=== PATIENT | male | born 1960 | race Two or more races ===

== ENCOUNTER 2022-08-16 16:22 | Inpatient (IN) | payer MEDICAID, OTHER ==
[~2022-08-16] VITALS: Ht 175.3 cm; Wt 105.8 kg
[2022-08-16] MEDS: LIDOCAINE 4MG/ML IV SOLN 500 ML IV SCH (16:51)
[2022-08-16 17:06] LABS: Basophils # (auto) 0.1 10 ^3/uL (0-0.2); Basophils % (auto) 0.7 % (0.0-2.0); Eosinophils # (auto) 0 10 ^3/uL (0-0.8); Eosinophils % (auto) 0.4 % (0.0-7.0); Hematocrit 47.4 % (41.0-53.0); Hemoglobin 16.1 g/dL (13.5-17.5); Lymphocytes # (auto) 2.1 10 ^3/uL (0.4-5.4); Lymphocytes % (auto) 20.9 % (10.0-50.0); Mean Corpuscular Hemoglobin 32.8 pg (28.0-32.0); Mean Corpuscular Volume 96.4 fL (80.0-100.0); Monocytes # (auto) 0.4 10 ^3/uL (0-1.3); Monocytes % (auto) 3.7 % (0.0-12.0); Neutrophils # (auto) 7.6 10 ^3/uL (1.6-8.6); Neutrophils % (auto) 74.3 % (37.0-80.0); Nucleated Red Blood Cells % 0.1 %; Red Blood Cells 4.91 10^6/uL (4.5-5.90); White Blood Cell 10.3 10^3/uL (4.4-10.8)
[2022-08-16] MEDS ORDERED: MIDAZOLAM HCL 10 ML IV ONE (17:24)
[2022-08-16 17:27] LABS: Albumin 3.6 g/dL (3.4-5.0); BUN/Creatinine Ratio 15.6; Calcium 9.2 mg/dL (8.5-10.1); Potassium 3.5 mmol/L (3.5-5.1)
[2022-08-16 17:30] LABS: Bilirubin, Total 0.5 mg/dL (0.2-1.0); Total Protein 7.4 g/dL (6.4-8.2)
[2022-08-16] MEDS ORDERED: ASPirin 325 MG TAB PO ONE (18:15)
[2022-08-16] MEDS: MAGNESIUM SULFATE 1GM/100ML 100 ML IV SCH ×2 (18:21→19:20)
[2022-08-16] MEDS ORDERED: HEPARIN SODIUM (PORCINE) 5000 UNITS/ML 1ML VIAL IV ONE (21:30)
[2022-08-16] MEDS ORDERED: NITROGLYCERIN 0.4 MG SL TAB SL PRN (21:30)
[2022-08-16] MEDS: SODIUM CHLORIDE 0.9% 1,000 ML IV SCH (21:42)
[2022-08-16] MEDS ORDERED: hydrALAZINE HCL 20 MG/ML VL IV PRN (21:45)
[2022-08-16] MEDS ORDERED: DEXTROSE (50%) 50ML SYRG IV PRN (21:45)
[2022-08-16] MEDS ORDERED: CLOPIDOGREL BISULFATE 75 MG TAB PO ONE (21:45)
[2022-08-16] MEDS: HEPARIN DRIP/D5W 100UNITS/ML 250 ML IV SCH ×2 (22:00→22:10)
[2022-08-16] MEDS ORDERED: ATORVASTATIN 20 MG TAB PO SCH (22:00)
[2022-08-16 22:11] LABS: Basophils # (auto) 0 10 ^3/uL (0-0.2); Basophils % (auto) 0.5 % (0.0-2.0); Eosinophils # (auto) 0 10 ^3/uL (0-0.8); Eosinophils % (auto) 0.2 % (0.0-7.0); Hematocrit 45.3 % (41.0-53.0); Hemoglobin 15.4 g/dL (13.5-17.5); Lymphocytes # (auto) 2.8 10 ^3/uL (0.4-5.4); Lymphocytes % (auto) 27.5 % (10.0-50.0); Mean Corpuscular Hemoglobin 32.2 pg (28.0-32.0); Mean Corpuscular Hgb Conc. 34.1 g/dL (32.0-36.0); Mean Corpuscular Volume 94.5 fL (80.0-100.0); Monocytes # (auto) 0.5 10 ^3/uL (0-1.3); Monocytes % (auto) 4.6 % (0.0-12.0); Neutrophils # (auto) 6.9 10 ^3/uL (1.6-8.6); Neutrophils % (auto) 67.2 % (37.0-80.0); Nucleated Red Blood Cells % 0.2 %; Red Blood Cells 4.79 10^6/uL (4.5-5.90); White Blood Cell 10.3 10^3/uL (4.4-10.8)
[2022-08-16 22:32] LABS: INR 0.96 (0.9-1.15); Partial Thromboplastin Time 23.5 sec (24.6-33.4)
[2022-08-17] VITALS (60 sets, daily range): BP systolic 85–149; BP diastolic 50–96
[2022-08-17] MEDS: ACCU-CHEK COMFORT CURVE STRIP VI SCH ×4 (00:15→18:25)
[2022-08-17] MEDS: InsuLIN REG 1unit/0.01ml Soln (100units/ml) SC SCH ×4 (00:15→18:31)
[2022-08-17] MEDS: LIDOCAINE 4MG/ML IV SOLN 500 ML IV SCH ×3 (01:00→23:06)
[2022-08-17] MEDS: SODIUM CHLORIDE 0.9% 1,000 ML IV SCH ×2 (05:30→13:30)
[2022-08-17 06:39] LABS: Urine Bacteria NONE SEEN /hpf (None Seen); Urine Blood Negative /uL (Negative); Urine Specific Gravity 1.028 (1.001-1.035); Urine WBC <1 /hpf (0 - 3)
[2022-08-17 07:00] LABS: Alcohol, Urine < 3.0 mg/dL (0-10); Amphetamine Screen, Urine NEGATIVE (NEGATIVE); Barbiturate Scree,Urine NEGATIVE (NEGATIVE); Benzodiazephine Screen, Urine NEGATIVE (NEGATIVE); Cannabinoid Screen, Urine NEGATIVE (NEGATIVE); Cocaine Screen, Urine NEGATIVE (NEGATIVE); Opiate Scree,Urine NEGATIVE (NEGATIVE); Phencyclidine Screen, Urine NEGATIVE (NEGATIVE)
[2022-08-17] MEDS: HEPARIN DRIP/D5W 100UNITS/ML 250 ML IV SCH (08:58)
[2022-08-17 09:30] LABS: Basophils # (auto) 0 10 ^3/uL (0-0.2); Basophils % (auto) 0.5 % (0.0-2.0); Eosinophils # (auto) 0 10 ^3/uL (0-0.8); Eosinophils % (auto) 0.6 % (0.0-7.0); Hematocrit 44.1 % (41.0-53.0); Hemoglobin 15.1 g/dL (13.5-17.5); Lymphocytes # (auto) 2.9 10 ^3/uL (0.4-5.4); Lymphocytes % (auto) 34.1 % (10.0-50.0); Mean Corpuscular Hemoglobin 32.6 pg (28.0-32.0); Mean Corpuscular Hgb Conc. 34.3 g/dL (32.0-36.0); Mean Corpuscular Volume 94.9 fL (80.0-100.0); Monocytes # (auto) 0.4 10 ^3/uL (0-1.3); Monocytes % (auto) 5.1 % (0.0-12.0); Neutrophils % (auto) 59.7 % (37.0-80.0); Nucleated Red Blood Cells % 0.3 %; Red Blood Cells 4.65 10^6/uL (4.5-5.90); Red Cell Distribution Width 13.2 % (11.8-14.3); White Blood Cell 8.4 10^3/uL (4.4-10.8)
[2022-08-17 09:46] LABS: INR 1.02 (0.9-1.15); Partial Thromboplastin Time 31.9 sec (24.6-33.4)
[2022-08-17] MEDS: PANTOPRAZOLE 40 MG/10 ML VIAL INJ IV SCH (09:50)
[2022-08-17] MEDS ORDERED: HEPARIN DRIP/D5W 100UNITS/ML 250 ML IV SCH (10:30)
[2022-08-17] MEDS ORDERED: HEPARIN SODIUM (PORCINE) 5000 UNITS/ML 1ML VIAL IV ONE (10:30)
[2022-08-17 12:28] LABS: BUN/Creatinine Ratio 20.6; Calcium 8.7 mg/dL (8.5-10.1)
[2022-08-17] MEDS ORDERED: VERAPAMIL 2.5MG/ML INJ 2ML VIAL IV ONE (15:05)
[2022-08-17] MEDS ORDERED: MIDAZOLAM HCL 2MG/2ML 2ml VIAL (1mg/ml) ONE (15:05)
[2022-08-17] MEDS ORDERED: fentaNYL CITRATE 100 MCG/2 ML VL ONE (15:05)
[2022-08-17] MEDS ORDERED: IODIXANOL 320MG/ML 100ML BTL IV ONE ×3 (15:10→17:13)
[2022-08-17] MEDS ORDERED: LIDOCAINE 2%HCL (LOCAL ANESTH.) INJ 10ml MDV ONE (15:11)
[2022-08-17] MEDS ORDERED: ATROPINE SULF 1 MG/10ml SYR ONE (16:17)
[2022-08-17] MEDS ORDERED: HEPARIN DRIP/D5W 100UNITS/ML 250 ML IV ONE (16:20)
[2022-08-17] MEDS ORDERED: HEPARIN SODIUM (PORCINE) 5000 UNITS/ML 1ML VIAL ONE (16:20)
[2022-08-17] MEDS ORDERED: FUROSEMIDE 20 MG/2 ML VIAL ONE (17:26)
[2022-08-17] MEDS ORDERED: CLOPIDOGREL 300 MG TAB PO ONE (18:00)
[2022-08-17] MEDS: ASPirin 81 mg TAB PO SCH (18:24)
[2022-08-17 20:42] LABS: Cholesterol 239 mg/dL (< 200); Triglycerides 305 mg/dL (< 150)
[2022-08-17 20:43] LABS: HDL Cholesterol 37 mg/dL (40-59); LDL Cholesterol 162 mg/dL (< 100)
[2022-08-17] MEDS: ATORVASTATIN 20 MG TAB PO SCH (22:02)
[2022-08-17] MEDS: MORPHINE SULFATE INJ 2 MG/ml SYRG IV PRN (22:06)
[2022-08-18] VITALS (77 sets, daily range): BP systolic 109–196; BP diastolic 57–142
[2022-08-18] MEDS: InsuLIN REG 1unit/0.01ml Soln (100units/ml) SC SCH ×4 (00:17→17:18)
[2022-08-18] MEDS: ACCU-CHEK COMFORT CURVE STRIP VI SCH ×4 (00:23→17:17)
[2022-08-18] MEDS: MORPHINE SULFATE INJ 2 MG/ml SYRG IV PRN (04:27)
[2022-08-18] MEDS: CLOPIDOGREL BISULFATE 75 MG TAB PO SCH (08:36)
[2022-08-18] MEDS: ASPirin 81 mg TAB PO SCH (08:36)
[2022-08-18] MEDS: PANTOPRAZOLE 40 MG/10 ML VIAL INJ IV SCH (08:36)
[2022-08-18] MEDS: METOPROLOL SUCCINATE XL 50 MG TAB PO SCH (08:36)
[2022-08-18 08:56] LABS: Basophils # (auto) 0 10 ^3/uL (0-0.2); Basophils % (auto) 0.4 % (0.0-2.0); Eosinophils # (auto) 0 10 ^3/uL (0-0.8); Eosinophils % (auto) 0.1 % (0.0-7.0); Hematocrit 44.9 % (41.0-53.0); Lymphocytes % (auto) 23.2 % (10.0-50.0); Mean Corpuscular Hemoglobin 31.8 pg (28.0-32.0); Mean Corpuscular Hgb Conc. 33.3 g/dL (32.0-36.0); Mean Corpuscular Volume 95.3 fL (80.0-100.0); Monocytes # (auto) 0.4 10 ^3/uL (0-1.3); Monocytes % (auto) 4.6 % (0.0-12.0); Neutrophils # (auto) 6.2 10 ^3/uL (1.6-8.6); Neutrophils % (auto) 71.7 % (37.0-80.0); Red Blood Cells 4.72 10^6/uL (4.5-5.90); White Blood Cell 8.6 10^3/uL (4.4-10.8)
[2022-08-18] MEDS ORDERED: METOPROLOL TARTRATE 50 MG TAB PO ONE (10:00)
[2022-08-18 10:48] LABS: Potassium 3.9 mmol/L (3.5-5.1)
[2022-08-18 10:53] LABS: BUN/Creatinine Ratio 19.4; Calcium 8.3 mg/dL (8.5-10.1)
[2022-08-18] MEDS: LIDOCAINE 4MG/ML IV SOLN 500 ML IV SCH (12:36)
[2022-08-18] MEDS: ATORVASTATIN 20 MG TAB PO SCH (22:00)
[2022-08-19] VITALS (83 sets, daily range): BP systolic 93–196; BP diastolic 41–124
[2022-08-19 05:00] LABS: Basophils # (auto) 0 10 ^3/uL (0-0.2); Basophils % (auto) 0.4 % (0.0-2.0); Eosinophils # (auto) 0 10 ^3/uL (0-0.8); Eosinophils % (auto) 0.5 % (0.0-7.0); Hematocrit 44.9 % (41.0-53.0); Lymphocytes # (auto) 2.5 10 ^3/uL (0.4-5.4); Lymphocytes % (auto) 32.2 % (10.0-50.0); Mean Corpuscular Hemoglobin 31.9 pg (28.0-32.0); Mean Corpuscular Hgb Conc. 33.5 g/dL (32.0-36.0); Mean Corpuscular Volume 95.4 fL (80.0-100.0); Monocytes # (auto) 0.5 10 ^3/uL (0-1.3); Monocytes % (auto) 6.5 % (0.0-12.0); Neutrophils # (auto) 4.7 10 ^3/uL (1.6-8.6); Neutrophils % (auto) 60.4 % (37.0-80.0); Nucleated Red Blood Cells % 0.1 %; Red Blood Cells 4.71 10^6/uL (4.5-5.90); Red Cell Distribution Width 13.1 % (11.8-14.3); White Blood Cell 7.9 10^3/uL (4.4-10.8)
[2022-08-19 05:12] LABS: BUN/Creatinine Ratio 18.9; Calcium 8.2 mg/dL (8.5-10.1); Potassium 4.2 mmol/L (3.5-5.1)
[2022-08-19] MEDS: ACCU-CHEK COMFORT CURVE STRIP VI SCH ×5 (06:00→23:43)
[2022-08-19] MEDS: InsuLIN REG 1unit/0.01ml Soln (100units/ml) SC SCH ×5 (06:00→23:45)
[2022-08-19] MEDS: ASPirin 81 mg TAB PO SCH (07:13)
[2022-08-19] MEDS: CLOPIDOGREL BISULFATE 75 MG TAB PO SCH (07:14)
[2022-08-19] MEDS: METOPROLOL SUCCINATE XL 50 MG TAB PO SCH (09:11)
[2022-08-19] MEDS: PANTOPRAZOLE 40 MG/10 ML VIAL INJ IV SCH (09:11)
[2022-08-19] MEDS: LIDOCAINE 4MG/ML IV SOLN 500 ML IV SCH (09:35)
[2022-08-19] MEDS: ATORVASTATIN 20 MG TAB PO SCH (21:00)
[2022-08-20] VITALS (81 sets, daily range): BP systolic 91–206; BP diastolic 47–109
[2022-08-20] MEDS: LIDOCAINE 4MG/ML IV SOLN 500 ML IV SCH (00:54)
[2022-08-20] MEDS: ACCU-CHEK COMFORT CURVE STRIP VI SCH ×3 (06:02→17:11)
[2022-08-20] MEDS: InsuLIN REG 1unit/0.01ml Soln (100units/ml) SC SCH ×3 (06:11→17:11)
[2022-08-20] MEDS: ASPirin 81 mg TAB PO SCH ×2 (07:22→17:57)
[2022-08-20] MEDS: CLOPIDOGREL BISULFATE 75 MG TAB PO SCH ×2 (07:22→17:57)
[2022-08-20] MEDS: METOPROLOL SUCCINATE XL 50 MG TAB PO SCH (08:24)
[2022-08-20] MEDS: PANTOPRAZOLE 40 MG/10 ML VIAL INJ IV SCH (08:24)
[2022-08-20] MEDS: ATORVASTATIN 20 MG TAB PO SCH (21:07)
[2022-08-21] VITALS (22 sets, daily range): BP systolic 89–152; BP diastolic 47–86
[2022-08-21] MEDS: ACCU-CHEK COMFORT CURVE STRIP VI SCH ×5 (00:03→23:58)
[2022-08-21] MEDS: InsuLIN REG 1unit/0.01ml Soln (100units/ml) SC SCH ×4 (05:49→17:58)
[2022-08-21 06:59] LABS: Basophils # (auto) 0 10 ^3/uL (0-0.2); Basophils % (auto) 0.4 % (0.0-2.0); Eosinophils # (auto) 0.1 10 ^3/uL (0-0.8); Eosinophils % (auto) 1.4 % (0.0-7.0); Hemoglobin 14.6 g/dL (13.5-17.5); Lymphocytes # (auto) 2.3 10 ^3/uL (0.4-5.4); Lymphocytes % (auto) 32.6 % (10.0-50.0); Mean Corpuscular Hemoglobin 31.7 pg (28.0-32.0); Mean Corpuscular Hgb Conc. 33.2 g/dL (32.0-36.0); Mean Corpuscular Volume 95.6 fL (80.0-100.0); Monocytes # (auto) 0.4 10 ^3/uL (0-1.3); Monocytes % (auto) 5.7 % (0.0-12.0); Neutrophils # (auto) 4.3 10 ^3/uL (1.6-8.6); Neutrophils % (auto) 59.9 % (37.0-80.0); Nucleated Red Blood Cells % 0.1 %; Red Cell Distribution Width 13.1 % (11.8-14.3); White Blood Cell 7.1 10^3/uL (4.4-10.8)
[2022-08-21 07:12] LABS: INR 1.01 (0.9-1.15); Partial Thromboplastin Time 26.2 sec (24.6-33.4)
[2022-08-21 07:21] LABS: Albumin 3.3 g/dL (3.4-5.0); BUN/Creatinine Ratio 21.1; Calcium 8.8 mg/dL (8.5-10.1)
[2022-08-21 07:24] LABS: Bilirubin, Total 0.7 mg/dL (0.2-1.0); Total Protein 6.9 g/dL (6.4-8.2)
[2022-08-21] MEDS: PANTOPRAZOLE 40 MG/10 ML VIAL INJ IV SCH (09:48)
[2022-08-21] MEDS: METOPROLOL SUCCINATE XL 50 MG TAB PO SCH (10:00)
[2022-08-21] MEDS: LIDOCAINE 4MG/ML IV SOLN 500 ML IV SCH (16:30)
[2022-08-21] MEDS: ATORVASTATIN 20 MG TAB PO SCH (21:24)
[2022-08-22] VITALS (21 sets, daily range): BP systolic 99–131; BP diastolic 49–81
[2022-08-22] MEDS: InsuLIN REG 1unit/0.01ml Soln (100units/ml) SC SCH ×4 (00:04→18:00)
[2022-08-22] MEDS: ACCU-CHEK COMFORT CURVE STRIP VI SCH ×3 (05:59→18:01)
[2022-08-22] MEDS: PANTOPRAZOLE 40 MG/10 ML VIAL INJ IV SCH (09:51)
[2022-08-22] MEDS: METOPROLOL SUCCINATE XL 50 MG TAB PO SCH (10:00)
[2022-08-22] MEDS: ASPirin 81 mg TAB PO SCH (10:00)
[2022-08-22] MEDS: LIDOCAINE 4MG/ML IV SOLN 500 ML IV SCH (16:30)
[2022-08-22] MEDS: SODIUM CHLORIDE 0.9% 1,000 ML IV SCH (19:30)
[2022-08-22] MEDS: ATORVASTATIN 20 MG TAB PO SCH (22:23)
[2022-08-23] VITALS (21 sets, daily range): BP systolic 110–154; BP diastolic 61–92
[2022-08-23] MEDS: ACCU-CHEK COMFORT CURVE STRIP VI SCH ×4 (00:13→18:38)
[2022-08-23] MEDS: InsuLIN REG 1unit/0.01ml Soln (100units/ml) SC SCH ×4 (00:17→18:42)
[2022-08-23 06:21] LABS: INR 0.98 (0.9-1.15); Partial Thromboplastin Time 26.2 sec (24.6-33.4)
[2022-08-23 06:31] LABS: BUN/Creatinine Ratio 19.6; Calcium 8.5 mg/dL (8.5-10.1); Potassium 3.9 mmol/L (3.5-5.1)
[2022-08-23] MEDS: EMPAGLIFLOZIN 10 MG TAB PO SCH (06:39)
[2022-08-23 07:04] LABS: Basophils # (auto) 0 10 ^3/uL (0-0.2); Basophils % (auto) 0.4 % (0.0-2.0); Eosinophils # (auto) 0.1 10 ^3/uL (0-0.8); Hematocrit 43.8 % (41.0-53.0); Hemoglobin 14.5 g/dL (13.5-17.5); Lymphocytes # (auto) 2.8 10 ^3/uL (0.4-5.4); Lymphocytes % (auto) 38.2 % (10.0-50.0); Mean Corpuscular Hgb Conc. 33.2 g/dL (32.0-36.0); Mean Corpuscular Volume 96.6 fL (80.0-100.0); Monocytes # (auto) 0.4 10 ^3/uL (0-1.3); Monocytes % (auto) 6.1 % (0.0-12.0); Neutrophils # (auto) 3.9 10 ^3/uL (1.6-8.6); Neutrophils % (auto) 53.3 % (37.0-80.0); Nucleated Red Blood Cells % 0.1 %; Red Blood Cells 4.53 10^6/uL (4.5-5.90); Red Cell Distribution Width 13.1 % (11.8-14.3); White Blood Cell 7.3 10^3/uL (4.4-10.8)
[2022-08-23] MEDS ORDERED: VANCOMYCIN PER PHARMACY 0 MG IV SCH ×2 (07:45→21:00)
[2022-08-23] MEDS ORDERED: VANCOMYCIN 1GM/250ML 250 ML IV ONE (08:00)
[2022-08-23] MEDS ORDERED: IOHEXOL 350 MG/ML 100ML IJ ONE (08:03)
[2022-08-23] MEDS ORDERED: LIDOCAINE 2%HCL (LOCAL ANESTH.) INJ 20ML MDV ONE (08:03)
[2022-08-23] MEDS ORDERED: fentaNYL CITRATE 100 MCG/2 ML VL ONE (08:05)
[2022-08-23] MEDS ORDERED: MIDAZOLAM HCL 2MG/2ML 2ml VIAL (1mg/ml) ONE (08:06)
[2022-08-23] MEDS ORDERED: VANCOMYCIN HCL 1000 MG VL ONE (08:26)
[2022-08-23] MEDS ORDERED: ceFAZolin 1GM VL ONE ×2 (08:26→08:27)
[2022-08-23] MEDS: SODIUM CHLORIDE 0.9% 1,000 ML IV SCH ×2 (08:35→22:05)
[2022-08-23] MEDS ORDERED: METOPROLOL SUCCINATE XL 50 MG TAB PO SCH (10:00)
[2022-08-23] MEDS ORDERED: AMIODARONE HCL 200 MG TAB PO ONE (11:00)
[2022-08-23] MEDS ORDERED: ASPirin 81 mg TAB PO ONE (11:00)
[2022-08-23] MEDS ORDERED: CLOPIDOGREL BISULFATE 75 MG TAB PO ONE (11:00)
[2022-08-23] MEDS: ASPirin 81 mg TAB PO SCH (11:34)
[2022-08-23] MEDS: PANTOPRAZOLE 40 MG/10 ML VIAL INJ IV SCH (11:34)
[2022-08-23] MEDS: LISINOPRIL 5 MG TAB PO SCH (11:35)
[2022-08-23] MEDS: VANCOMYCIN 1GM/250ML 250 ML IV SCH (18:37)
[2022-08-23] MEDS: HYDROcodone-ACET 5/325MG TAB PO PRN (19:28)
[2022-08-23] MEDS: ATORVASTATIN 20 MG TAB PO SCH (22:06)
[2022-08-23] MEDS: AMIODARONE HCL 200 MG TAB PO SCH (22:06)
[2022-08-24] VITALS (17 sets, daily range): BP systolic 110–137; BP diastolic 63–96
[2022-08-24] MEDS: ACCU-CHEK COMFORT CURVE STRIP VI SCH ×3 (00:21→11:39)
[2022-08-24] MEDS: HYDROcodone-ACET 5/325MG TAB PO PRN (03:15)
[2022-08-24] MEDS: VANCOMYCIN 1GM/250ML 250 ML IV SCH ×2 (04:17→14:00)
[2022-08-24 05:06] LABS: Basophils # (auto) 0 10 ^3/uL (0-0.2); Basophils % (auto) 0.4 % (0.0-2.0); Eosinophils # (auto) 0.1 10 ^3/uL (0-0.8); Eosinophils % (auto) 1.6 % (0.0-7.0); Hematocrit 42.4 % (41.0-53.0); Lymphocytes # (auto) 1.9 10 ^3/uL (0.4-5.4); Lymphocytes % (auto) 27.1 % (10.0-50.0); Mean Corpuscular Hemoglobin 31.5 pg (28.0-32.0); Mean Corpuscular Hgb Conc. 32.9 g/dL (32.0-36.0); Mean Corpuscular Volume 95.9 fL (80.0-100.0); Monocytes # (auto) 0.4 10 ^3/uL (0-1.3); Monocytes % (auto) 6.5 % (0.0-12.0); Neutrophils # (auto) 4.4 10 ^3/uL (1.6-8.6); Neutrophils % (auto) 64.4 % (37.0-80.0); Nucleated Red Blood Cells % 0.1 %; Red Blood Cells 4.42 10^6/uL (4.5-5.90); Red Cell Distribution Width 12.9 % (11.8-14.3); White Blood Cell 6.9 10^3/uL (4.4-10.8)
[2022-08-24 05:20] LABS: Potassium 3.8 mmol/L (3.5-5.1)
[2022-08-24 05:21] LABS: Calcium 8.1 mg/dL (8.5-10.1)
[2022-08-24 05:23] LABS: BUN/Creatinine Ratio 15.2
[2022-08-24] MEDS: InsuLIN REG 1unit/0.01ml Soln (100units/ml) SC SCH ×3 (06:25→11:38)
[2022-08-24] MEDS: EMPAGLIFLOZIN 10 MG TAB PO SCH (06:51)
[2022-08-24] MEDS ORDERED: VANCOMYCIN PER PHARMACY 0 MG IV SCH (09:00)
[2022-08-24] MEDS: PANTOPRAZOLE 40 MG/10 ML VIAL INJ IV SCH (09:48)
[2022-08-24] MEDS: LISINOPRIL 5 MG TAB PO SCH (09:51)
[2022-08-24] MEDS: AMIODARONE HCL 200 MG TAB PO SCH (09:52)
[2022-08-24] MEDS: ASPirin 81 mg TAB PO SCH (09:53)
[2022-08-24] MEDS ORDERED: DOXYCYCLINE 100 MG TAB/CAP PO SCH (10:00)
[2022-08-24] MEDS ORDERED: CLOPIDOGREL BISULFATE 75 MG TAB PO SCH (10:00)
[2022-08-24] MEDS ORDERED: METOPROLOL SUCCINATE XL 50 MG TAB PO SCH (10:00)
[2022-08-24] MEDS: SODIUM CHLORIDE 0.9% 1,000 ML IV SCH (11:40)
[2022-08-24] MEDS ORDERED: METO-6 PO (11:50)
[2022-08-24] MEDS ORDERED: LISI-275 PO (11:50)
[2022-08-24] MEDS ORDERED: ASPI-325 PO (11:50)
[2022-08-24] MEDS ORDERED: EMPA1TAB PO (11:50)
[2022-08-24] MEDS ORDERED: CLOP75TA70 PO (11:50)
[2022-08-24] MEDS ORDERED: DOX100T PO (11:50)
[2022-08-24] MEDS ORDERED: ATO40T PO (11:51)
[2022-08-24] MEDS ORDERED: AMIO200T33 PO (11:52)
[2022-08-25] MEDS ORDERED: LISINOPRIL 5 MG TAB PO SCH (10:00)
== END 2022-08-24 17:16 | disposition home or self-care (01) | DRG 179 ==
LOC: ER 16:22 → EDBD 16:22 → TELE 21:30 → EDBD 21:30 → ICU CENTRL 08-17 01:55 → DOU IN ICU 08-21 17:24
PROVIDERS: ADMIT Registered Nurse; ATTEND Internal Medicine
PROC: 027034Z Dilation of Coronary Artery, One Artery with Drug-eluting Intraluminal Device, Percutaneous Approach (ICD-10-PCS; 2022-08-17)
PROC: 4A023N7 Measurement of Cardiac Sampling and Pressure, Left Heart, Percutaneous Approach (ICD-10-PCS; 2022-08-17)
PROC: B211YZZ Fluoroscopy of Multiple Coronary Arteries using Other Contrast (ICD-10-PCS; 2022-08-17)
PROC: B215YZZ Fluoroscopy of Left Heart using Other Contrast (ICD-10-PCS; 2022-08-17)
PROC: 0JH608Z Insertion of Defibrillator Generator into Chest Subcutaneous Tissue and Fascia, Open Approach (ICD-10-PCS; principal; 2022-08-23)
PROC: 02HK3KZ Insertion of Defibrillator Lead into Right Ventricle, Percutaneous Approach (ICD-10-PCS; 2022-08-23)
PROC: B5171ZZ Fluoroscopy of Left Subclavian Vein using Low Osmolar Contrast (ICD-10-PCS; 2022-08-23)
DX: I21.4 Non-ST elevation (NSTEMI) myocardial infarction (principal); I42.8 Other cardiomyopathies; I47.20 Ventricular tachycardia, unspecified; I50.22 Chronic systolic (congestive) heart failure; I11.0 Hypertensive heart disease with heart failure; R55 Syncope and collapse; E11.9 Type 2 diabetes mellitus without complications; E66.01 Morbid (severe) obesity due to excess calories; E78.5 Hyperlipidemia, unspecified; I25.10 Atherosclerotic heart disease of native coronary artery without angina pectoris; Z20.822 Contact with and (suspected) exposure to COVID-19; Z68.34 Body mass index [BMI] 34.0-34.9, adult; Z86.73 Personal history of transient ischemic attack (TIA), and cerebral infarction without residual deficits
CPT/HCPCS: 33240; 36415; 70450; 71045; 80048; 80053; 80061; 80307; 81001; 82962; 83036; 83735; 83880; 84443; 84484; 85025; 85610; 85730; 86850; 86900; 86901; 87081; 87426; 92928; 93005; 93306; 93458; 93886; 96365; 96375; 99152; 99153; 99291; C1874; C1887; C9113; G0378; J0690; J1815; J2001; J2250; Q9967

== ENCOUNTER 2022-08-24 17:47 | Inpatient (IN) | payer MEDICAID ==
[~2022-08-24] VITALS: Ht 170.2 cm; Wt 104.5 kg
[~2022-08-24 17:47] MED LIST: AMIO200T33 PO; ASPI-325 PO; ATO40T PO; CLOP75TA70 PO; DOX100T PO; EMPA1TAB PO; LISI-275 PO; METO-6 PO
[2022-08-24] MEDS ORDERED: SOTALOL HCL 80 MG TAB PO ONE (18:15)
[2022-08-24 18:19] LABS: Basophils # (auto) 0 10 ^3/uL (0-0.2); Basophils % (auto) 0.5 % (0.0-2.0); Eosinophils # (auto) 0.1 10 ^3/uL (0-0.8); Eosinophils % (auto) 0.7 % (0.0-7.0); Hematocrit 46.3 % (41.0-53.0); Hemoglobin 16.1 g/dL (13.5-17.5); Lymphocytes # (auto) 2.1 10 ^3/uL (0.4-5.4); Mean Corpuscular Hemoglobin 32.9 pg (28.0-32.0); Mean Corpuscular Hgb Conc. 34.7 g/dL (32.0-36.0); Mean Corpuscular Volume 94.7 fL (80.0-100.0); Monocytes # (auto) 0.5 10 ^3/uL (0-1.3); Monocytes % (auto) 5.8 % (0.0-12.0); Nucleated Red Blood Cells % 0.2 %; Red Blood Cells 4.89 10^6/uL (4.5-5.90); Red Cell Distribution Width 12.9 % (11.8-14.3); White Blood Cell 8.7 10^3/uL (4.4-10.8)
[2022-08-24 18:36] LABS: Albumin 3.7 g/dL (3.4-5.0); BUN/Creatinine Ratio 16.1; Partial Thromboplastin Time 25.5 sec (24.6-33.4); Potassium 3.6 mmol/L (3.5-5.1)
[2022-08-24 18:39] LABS: Bilirubin, Total 0.7 mg/dL (0.2-1.0); Total Protein 7.7 g/dL (6.4-8.2)
[2022-08-24] MEDS: LIDOCAINE 4MG/ML IV SOLN 500 ML IV SCH (18:41)
[2022-08-24] MEDS ORDERED: MORPHINE SULFATE INJ 2 MG/ml SYRG IV PRN (19:15)
[2022-08-24] MEDS ORDERED: ACETAMINOPHEN 325 MG TAB PO PRN (19:15)
[2022-08-24] MEDS ORDERED: NITROGLYCERIN 0.4 MG SL TAB SL PRN (19:15)
[2022-08-24] MEDS ORDERED: PANTOPRAZOLE 40 MG/10 ML VIAL INJ IV ONE (19:45)
[2022-08-24] MEDS ORDERED: DEXTROSE (50%) 50ML SYRG IV PRN (20:00)
[2022-08-24] MEDS: ACCU-CHEK COMFORT CURVE STRIP VI SCH (21:29)
[2022-08-24] MEDS: InsuLIN REG 1unit/0.01ml Soln (100units/ml) SC SCH (21:37)
[2022-08-24] MEDS: ATORVASTATIN 20 MG TAB PO SCH (21:50)
[2022-08-24] MEDS: AMIODARONE HCL 200 MG TAB PO SCH (21:50)
[2022-08-24] MEDS ORDERED: hydrALAZINE HCL 20 MG/ML VL IV PRN (22:45)
[2022-08-24 23:47] LABS: Urine Bacteria NONE SEEN /hpf (None Seen); Urine Blood Negative /uL (Negative); Urine Specific Gravity 1.026 (1.001-1.035); Urine WBC <1 /hpf (0 - 3)
[2022-08-25] MEDS: LIDOCAINE 4MG/ML IV SOLN 500 ML IV SCH (03:00)
[2022-08-25 06:27] LABS: Basophils # (auto) 0 10 ^3/uL (0-0.2); Basophils % (auto) 0.6 % (0.0-2.0); Eosinophils # (auto) 0 10 ^3/uL (0-0.8); Eosinophils % (auto) 0.6 % (0.0-7.0); Hematocrit 43.1 % (41.0-53.0); Hemoglobin 14.3 g/dL (13.5-17.5); Lymphocytes # (auto) 2.3 10 ^3/uL (0.4-5.4); Lymphocytes % (auto) 26.8 % (10.0-50.0); Mean Corpuscular Hemoglobin 31.7 pg (28.0-32.0); Mean Corpuscular Hgb Conc. 33.1 g/dL (32.0-36.0); Mean Corpuscular Volume 95.8 fL (80.0-100.0); Monocytes # (auto) 0.5 10 ^3/uL (0-1.3); Monocytes % (auto) 6.1 % (0.0-12.0); Neutrophils # (auto) 5.7 10 ^3/uL (1.6-8.6); Neutrophils % (auto) 65.9 % (37.0-80.0); Nucleated Red Blood Cells % 0.1 %; Red Cell Distribution Width 12.8 % (11.8-14.3); White Blood Cell 8.6 10^3/uL (4.4-10.8)
[2022-08-25 06:46] LABS: BUN/Creatinine Ratio 16.5; Calcium 8.4 mg/dL (8.5-10.1); Potassium 3.8 mmol/L (3.5-5.1)
[2022-08-25 06:48] LABS: Bilirubin, Total 0.8 mg/dL (0.2-1.0); Total Protein 6.9 g/dL (6.4-8.2)
[2022-08-25] MEDS: ACCU-CHEK COMFORT CURVE STRIP VI SCH ×4 (06:54→22:25)
[2022-08-25] MEDS: InsuLIN REG 1unit/0.01ml Soln (100units/ml) SC SCH ×4 (06:54→22:00)
[2022-08-25] MEDS: ENOXAPARIN SOD 40 MG/0.4 ML SYRINGE SC SCH (08:47)
[2022-08-25] MEDS: PANTOPRAZOLE 40 MG/10 ML VIAL INJ IV SCH (08:47)
[2022-08-25] MEDS: ASPirin-EC 81 mg tab PO SCH (08:48)
[2022-08-25] MEDS: METOPROLOL SUCCINATE XL 50 MG TAB PO SCH (08:48)
[2022-08-25] MEDS: AMIODARONE HCL 200 MG TAB PO SCH ×2 (08:48→22:00)
[2022-08-25] MEDS: DOXYCYCLINE 100 MG TAB/CAP PO SCH (08:48)
[2022-08-25] MEDS: CLOPIDOGREL BISULFATE 75 MG TAB PO SCH (08:48)
[2022-08-25] MEDS: LISINOPRIL 5 MG TAB PO SCH (08:49)
[2022-08-25] MEDS: ATORVASTATIN 20 MG TAB PO SCH (22:00)
[2022-08-26] MEDS: ACCU-CHEK COMFORT CURVE STRIP VI SCH ×4 (06:50→21:43)
[2022-08-26] MEDS: InsuLIN REG 1unit/0.01ml Soln (100units/ml) SC SCH ×4 (06:50→21:47)
[2022-08-26] MEDS: METOPROLOL SUCCINATE XL 50 MG TAB PO SCH (11:15)
[2022-08-26] MEDS: AMIODARONE HCL 200 MG TAB PO SCH ×2 (11:49→21:43)
[2022-08-26] MEDS: CLOPIDOGREL BISULFATE 75 MG TAB PO SCH (11:49)
[2022-08-26] MEDS: DOXYCYCLINE 100 MG TAB/CAP PO SCH (11:50)
[2022-08-26] MEDS: LISINOPRIL 5 MG TAB PO SCH (11:50)
[2022-08-26] MEDS: ASPirin-EC 81 mg tab PO SCH (11:50)
[2022-08-26] MEDS: ENOXAPARIN SOD 40 MG/0.4 ML SYRINGE SC SCH (11:51)
[2022-08-26] MEDS: PANTOPRAZOLE 40 MG/10 ML VIAL INJ IV SCH (11:52)
[2022-08-26] MEDS: LIDOCAINE 4MG/ML IV SOLN 500 ML IV SCH (18:15)
[2022-08-26] MEDS: ATORVASTATIN 20 MG TAB PO SCH (21:43)
[2022-08-27] MEDS: ACCU-CHEK COMFORT CURVE STRIP VI SCH ×4 (06:26→22:22)
[2022-08-27] MEDS: InsuLIN REG 1unit/0.01ml Soln (100units/ml) SC SCH ×4 (06:26→22:00)
[2022-08-27] MEDS: PANTOPRAZOLE 40 MG/10 ML VIAL INJ IV SCH (09:51)
[2022-08-27] MEDS: AMIODARONE HCL 200 MG TAB PO SCH ×2 (09:54→22:18)
[2022-08-27] MEDS: DOXYCYCLINE 100 MG TAB/CAP PO SCH (09:54)
[2022-08-27] MEDS: ENOXAPARIN SOD 40 MG/0.4 ML SYRINGE SC SCH (09:55)
[2022-08-27] MEDS: LISINOPRIL 5 MG TAB PO SCH (09:55)
[2022-08-27] MEDS: METOPROLOL SUCCINATE XL 50 MG TAB PO SCH (09:56)
[2022-08-27] MEDS: ASPirin-EC 81 mg tab PO SCH (09:57)
[2022-08-27] MEDS: CLOPIDOGREL BISULFATE 75 MG TAB PO SCH (09:57)
[2022-08-27] MEDS: LIDOCAINE 4MG/ML IV SOLN 500 ML IV SCH (18:15)
[2022-08-27] MEDS: ATORVASTATIN 20 MG TAB PO SCH (22:18)
[2022-08-28] MEDS: ACCU-CHEK COMFORT CURVE STRIP VI SCH ×4 (06:53→21:52)
[2022-08-28] MEDS: InsuLIN REG 1unit/0.01ml Soln (100units/ml) SC SCH ×4 (06:54→21:53)
[2022-08-28] MEDS: ENOXAPARIN SOD 40 MG/0.4 ML SYRINGE SC SCH (09:39)
[2022-08-28] MEDS: ASPirin-EC 81 mg tab PO SCH (09:39)
[2022-08-28] MEDS: AMIODARONE HCL 200 MG TAB PO SCH ×2 (09:39→22:07)
[2022-08-28] MEDS: LISINOPRIL 5 MG TAB PO SCH (09:40)
[2022-08-28] MEDS: CLOPIDOGREL BISULFATE 75 MG TAB PO SCH (09:40)
[2022-08-28] MEDS: DOXYCYCLINE 100 MG TAB/CAP PO SCH (09:40)
[2022-08-28] MEDS ORDERED: METOPROLOL TARTRATE 50 MG TAB PO SCH (10:00)
[2022-08-28] MEDS: FAMOTIDINE 20 MG TAB PO SCH ×2 (10:18→22:08)
[2022-08-28] MEDS: SOTALOL HCL 80 MG TAB PO SCH (22:00)
[2022-08-28] MEDS: ATORVASTATIN 20 MG TAB PO SCH (22:08)
[2022-08-29] MEDS ORDERED: ALBUTEROL MEDNEB 2.5 mg/3ml NEB ONE (00:40)
[2022-08-29] MEDS ORDERED: IPRATROPIUM BROM 0.5 MG/2.5ML INH SOL ONE (00:40)
[2022-08-29 05:00] VITALS: BP 129/78
[2022-08-29] MEDS: ACCU-CHEK COMFORT CURVE STRIP VI SCH ×4 (06:11→21:10)
[2022-08-29] MEDS: InsuLIN REG 1unit/0.01ml Soln (100units/ml) SC SCH ×4 (06:11→21:11)
[2022-08-29 06:45] LABS: Potassium 3.7 mmol/L (3.5-5.1)
[2022-08-29 06:53] LABS: BUN/Creatinine Ratio 19.8; Magnesium 2.2 mg/dL (1.6-2.6)
[2022-08-29 08:00] VITALS: BP 105/62
[2022-08-29 09:00] VITALS: BP 143/84
[2022-08-29] MEDS: SOTALOL HCL 80 MG TAB PO SCH ×2 (09:33→20:59)
[2022-08-29] MEDS: AMIODARONE HCL 200 MG TAB PO SCH ×2 (09:33→21:00)
[2022-08-29] MEDS: DOXYCYCLINE 100 MG TAB/CAP PO SCH (09:34)
[2022-08-29] MEDS: FAMOTIDINE 20 MG TAB PO SCH ×2 (09:34→20:59)
[2022-08-29] MEDS: MAGNESIUM OXIDE 400 MG TAB PO SCH (09:34)
[2022-08-29] MEDS: CLOPIDOGREL BISULFATE 75 MG TAB PO SCH (09:34)
[2022-08-29] MEDS: ASPirin-EC 81 mg tab PO SCH (09:34)
[2022-08-29] MEDS: ENOXAPARIN SOD 40 MG/0.4 ML SYRINGE SC SCH (09:35)
[2022-08-29] MEDS: LISINOPRIL 5 MG TAB PO SCH (09:35)
[2022-08-29 13:00] VITALS: BP 126/73
[2022-08-29] MEDS ORDERED: POTASSIUM CHL 20 Meq TABLET PO ONE (15:00)
[2022-08-29 17:13] VITALS: BP 140/78
[2022-08-29] MEDS: ATORVASTATIN 20 MG TAB PO SCH (20:59)
[2022-08-29 22:00] VITALS: BP 113/77
[2022-08-30 04:56] VITALS: BP 122/75
[2022-08-30] MEDS: ACCU-CHEK COMFORT CURVE STRIP VI SCH ×4 (06:06→22:00)
[2022-08-30] MEDS: InsuLIN REG 1unit/0.01ml Soln (100units/ml) SC SCH ×4 (06:06→22:00)
[2022-08-30] MEDS: DOXYCYCLINE 100 MG TAB/CAP PO SCH (08:56)
[2022-08-30] MEDS: CLOPIDOGREL BISULFATE 75 MG TAB PO SCH (08:56)
[2022-08-30] MEDS: AMIODARONE HCL 200 MG TAB PO SCH ×2 (08:57→21:59)
[2022-08-30] MEDS: FAMOTIDINE 20 MG TAB PO SCH ×2 (08:57→21:59)
[2022-08-30] MEDS: ASPirin-EC 81 mg tab PO SCH (08:57)
[2022-08-30 09:00] VITALS: BP 132/75
[2022-08-30] MEDS: ENOXAPARIN SOD 40 MG/0.4 ML SYRINGE SC SCH (09:02)
[2022-08-30] MEDS: LISINOPRIL 5 MG TAB PO SCH (09:02)
[2022-08-30] MEDS: MAGNESIUM OXIDE 400 MG TAB PO SCH (09:03)
[2022-08-30] MEDS: SOTALOL HCL 80 MG TAB PO SCH ×2 (09:03→22:00)
[2022-08-30 13:00] VITALS: BP 111/78
[2022-08-30 16:46] VITALS: BP 136/85
[2022-08-30 21:31] VITALS: BP 141/78
[2022-08-30] MEDS: ATORVASTATIN 20 MG TAB PO SCH (22:00)
[2022-08-31 05:00] VITALS: BP 119/72
[2022-08-31 05:55] LABS: Basophils # (auto) 0.1 10 ^3/uL (0-0.2); Basophils % (auto) 0.9 % (0.0-2.0); Eosinophils # (auto) 0.1 10 ^3/uL (0-0.8); Eosinophils % (auto) 1.2 % (0.0-7.0); Hematocrit 44.4 % (41.0-53.0); Lymphocytes # (auto) 3.4 10 ^3/uL (0.4-5.4); Lymphocytes % (auto) 43.4 % (10.0-50.0); Mean Corpuscular Hemoglobin 32.2 pg (28.0-32.0); Mean Corpuscular Hgb Conc. 33.8 g/dL (32.0-36.0); Mean Corpuscular Volume 95.4 fL (80.0-100.0); Monocytes # (auto) 0.4 10 ^3/uL (0-1.3); Monocytes % (auto) 5.2 % (0.0-12.0); Neutrophils # (auto) 3.9 10 ^3/uL (1.6-8.6); Neutrophils % (auto) 49.3 % (37.0-80.0); Nucleated Red Blood Cells % 0.1 %; Red Blood Cells 4.65 10^6/uL (4.5-5.90); White Blood Cell 7.9 10^3/uL (4.4-10.8)
[2022-08-31 06:08] LABS: BUN/Creatinine Ratio 17.7; Calcium 8.5 mg/dL (8.5-10.1); Magnesium 2.2 mg/dL (1.6-2.6)
[2022-08-31] MEDS: InsuLIN REG 1unit/0.01ml Soln (100units/ml) SC SCH ×4 (06:16→21:29)
[2022-08-31] MEDS: ACCU-CHEK COMFORT CURVE STRIP VI SCH ×4 (06:16→21:29)
[2022-08-31 08:10] VITALS: BP 129/74
[2022-08-31 09:00] VITALS: BP 129/74
[2022-08-31] MEDS: SOTALOL HCL 80 MG TAB PO SCH ×2 (09:46→21:29)
[2022-08-31] MEDS: AMIODARONE HCL 200 MG TAB PO SCH ×2 (09:47→21:27)
[2022-08-31] MEDS: DOXYCYCLINE 100 MG TAB/CAP PO SCH (09:47)
[2022-08-31] MEDS: CLOPIDOGREL BISULFATE 75 MG TAB PO SCH (09:47)
[2022-08-31] MEDS: ASPirin-EC 81 mg tab PO SCH (09:47)
[2022-08-31] MEDS: ENOXAPARIN SOD 40 MG/0.4 ML SYRINGE SC SCH (09:47)
[2022-08-31] MEDS: MAGNESIUM OXIDE 400 MG TAB PO SCH (09:47)
[2022-08-31] MEDS: FAMOTIDINE 20 MG TAB PO SCH ×2 (09:47→21:27)
[2022-08-31] MEDS: LISINOPRIL 5 MG TAB PO SCH (09:48)
[2022-08-31 13:00] VITALS: BP 147/83
[2022-08-31 17:06] VITALS: BP 111/72
[2022-08-31] MEDS: ATORVASTATIN 20 MG TAB PO SCH (21:27)
[2022-08-31 22:00] VITALS: BP 138/69
[2022-09-01 05:00] VITALS: BP 116/77
[2022-09-01 06:03] LABS: Basophils # (auto) 0.3 10 ^3/uL (0-0.2); Basophils % (auto) 4.2 % (0.0-2.0); Eosinophils # (auto) 0.1 10 ^3/uL (0-0.8); Eosinophils % (auto) 1.1 % (0.0-7.0); Hematocrit 43.3 % (41.0-53.0); Hemoglobin 14.7 g/dL (13.5-17.5); Lymphocytes % (auto) 40.8 % (10.0-50.0); Mean Corpuscular Hemoglobin 32.1 pg (28.0-32.0); Mean Corpuscular Volume 94.3 fL (80.0-100.0); Monocytes # (auto) 0.3 10 ^3/uL (0-1.3); Neutrophils # (auto) 3.6 10 ^3/uL (1.6-8.6); Neutrophils % (auto) 49.9 % (37.0-80.0); Nucleated Red Blood Cells % 0.4 %; Red Blood Cells 4.59 10^6/uL (4.5-5.90); Red Cell Distribution Width 12.8 % (11.8-14.3); White Blood Cell 7.3 10^3/uL (4.4-10.8)
[2022-09-01 06:13] LABS: BUN/Creatinine Ratio 16.1; Calcium 8.5 mg/dL (8.5-10.1)
[2022-09-01] MEDS: ACCU-CHEK COMFORT CURVE STRIP VI SCH ×4 (06:22→21:30)
[2022-09-01] MEDS: InsuLIN REG 1unit/0.01ml Soln (100units/ml) SC SCH ×4 (06:22→21:27)
[2022-09-01 09:00] VITALS: BP_SYST 111; BP_SYST 121; BP_DIAS 73
[2022-09-01] MEDS: ENOXAPARIN SOD 40 MG/0.4 ML SYRINGE SC SCH (09:17)
[2022-09-01] MEDS: FAMOTIDINE 20 MG TAB PO SCH ×2 (09:18→21:28)
[2022-09-01] MEDS: DOXYCYCLINE 100 MG TAB/CAP PO SCH (09:18)
[2022-09-01] MEDS: ASPirin-EC 81 mg tab PO SCH (09:18)
[2022-09-01] MEDS: SOTALOL HCL 80 MG TAB PO SCH ×2 (09:18→21:29)
[2022-09-01] MEDS: AMIODARONE HCL 200 MG TAB PO SCH ×2 (09:18→21:28)
[2022-09-01] MEDS: LISINOPRIL 5 MG TAB PO SCH (09:19)
[2022-09-01] MEDS: CLOPIDOGREL BISULFATE 75 MG TAB PO SCH (09:19)
[2022-09-01] MEDS: MAGNESIUM OXIDE 400 MG TAB PO SCH (09:20)
[2022-09-01 13:00] VITALS: BP 119/72
[2022-09-01 17:00] VITALS: BP 117/71
[2022-09-01] MEDS: ATORVASTATIN 20 MG TAB PO SCH (21:28)
[2022-09-01 22:00] VITALS: BP 118/64
[2022-09-02 05:00] VITALS: BP 103/56
[2022-09-02] MEDS: ACCU-CHEK COMFORT CURVE STRIP VI SCH ×4 (06:20→22:02)
[2022-09-02] MEDS: InsuLIN REG 1unit/0.01ml Soln (100units/ml) SC SCH ×4 (06:20→22:00)
[2022-09-02 07:00] LABS: Basophils # (auto) 0 10 ^3/uL (0-0.2); Basophils % (auto) 0.6 % (0.0-2.0); Eosinophils # (auto) 0.1 10 ^3/uL (0-0.8); Eosinophils % (auto) 1.5 % (0.0-7.0); Hematocrit 46.3 % (41.0-53.0); Hemoglobin 15.5 g/dL (13.5-17.5); Lymphocytes # (auto) 3.7 10 ^3/uL (0.4-5.4); Lymphocytes % (auto) 47.7 % (10.0-50.0); Mean Corpuscular Hemoglobin 31.9 pg (28.0-32.0); Mean Corpuscular Hgb Conc. 33.5 g/dL (32.0-36.0); Mean Corpuscular Volume 95.2 fL (80.0-100.0); Monocytes # (auto) 0.4 10 ^3/uL (0-1.3); Neutrophils # (auto) 3.5 10 ^3/uL (1.6-8.6); Neutrophils % (auto) 45.2 % (37.0-80.0); Nucleated Red Blood Cells % 0.8 %; Red Blood Cells 4.86 10^6/uL (4.5-5.90); Red Cell Distribution Width 12.8 % (11.8-14.3); White Blood Cell 7.8 10^3/uL (4.4-10.8)
[2022-09-02 07:52] LABS: Potassium 4.5 mmol/L (3.5-5.1)
[2022-09-02 07:53] LABS: BUN/Creatinine Ratio 17.3; Calcium 8.7 mg/dL (8.5-10.1)
[2022-09-02 08:30] VITALS: BP 129/79
[2022-09-02] MEDS: MAGNESIUM OXIDE 400 MG TAB PO SCH (08:56)
[2022-09-02 09:00] VITALS: BP 135/69
[2022-09-02] MEDS: ASPirin-EC 81 mg tab PO SCH (09:01)
[2022-09-02] MEDS: LISINOPRIL 5 MG TAB PO SCH (09:07)
[2022-09-02] MEDS: SOTALOL HCL 80 MG TAB PO SCH ×2 (09:08→21:58)
[2022-09-02] MEDS: FAMOTIDINE 20 MG TAB PO SCH ×2 (09:08→21:58)
[2022-09-02] MEDS: ENOXAPARIN SOD 40 MG/0.4 ML SYRINGE SC SCH (09:08)
[2022-09-02] MEDS: DOXYCYCLINE 100 MG TAB/CAP PO SCH (09:09)
[2022-09-02] MEDS: AMIODARONE HCL 200 MG TAB PO SCH ×2 (09:09→21:59)
[2022-09-02] MEDS: CLOPIDOGREL BISULFATE 75 MG TAB PO SCH (09:09)
[2022-09-02 13:00] VITALS: BP 120/74
[2022-09-02 17:00] VITALS: BP 127/85
[2022-09-02 20:00] VITALS: BP 136/86
[2022-09-02] MEDS: ATORVASTATIN 20 MG TAB PO SCH (21:58)
[2022-09-03 00:33] VITALS: BP_SYST 136; BP_SYST 162; BP_DIAS 71; BP_DIAS 86
[2022-09-03 05:00] VITALS: BP 112/61
[2022-09-03] MEDS: ACCU-CHEK COMFORT CURVE STRIP VI SCH ×4 (06:03→21:58)
[2022-09-03] MEDS: InsuLIN REG 1unit/0.01ml Soln (100units/ml) SC SCH ×4 (06:03→21:58)
[2022-09-03] MEDS: CLOPIDOGREL BISULFATE 75 MG TAB PO SCH (09:49)
[2022-09-03] MEDS: FAMOTIDINE 20 MG TAB PO SCH ×2 (09:49→21:48)
[2022-09-03] MEDS: ASPirin-EC 81 mg tab PO SCH (09:49)
[2022-09-03] MEDS: DOXYCYCLINE 100 MG TAB/CAP PO SCH (09:51)
[2022-09-03] MEDS: AMIODARONE HCL 200 MG TAB PO SCH ×2 (09:51→21:49)
[2022-09-03] MEDS: LISINOPRIL 5 MG TAB PO SCH (10:00)
[2022-09-03] MEDS: SOTALOL HCL 80 MG TAB PO SCH ×2 (10:00→22:00)
[2022-09-03] MEDS: ENOXAPARIN SOD 40 MG/0.4 ML SYRINGE SC SCH (10:09)
[2022-09-03] MEDS: MAGNESIUM OXIDE 400 MG TAB PO SCH (10:13)
[2022-09-03 17:00] VITALS: BP 115/69
[2022-09-03 20:00] VITALS: BP 122/72
[2022-09-03] MEDS: ATORVASTATIN 20 MG TAB PO SCH (21:48)
[2022-09-03 22:00] VITALS: BP 122/72
[2022-09-04] VITALS (7 sets, daily range): BP systolic 103–126; BP diastolic 68–81
[2022-09-04] MEDS: ACCU-CHEK COMFORT CURVE STRIP VI SCH ×4 (05:58→22:20)
[2022-09-04] MEDS: InsuLIN REG 1unit/0.01ml Soln (100units/ml) SC SCH ×4 (05:58→22:00)
[2022-09-04] MEDS: SOTALOL HCL 80 MG TAB PO SCH ×2 (10:00→22:00)
[2022-09-04] MEDS: AMIODARONE HCL 200 MG TAB PO SCH ×2 (10:11→22:18)
[2022-09-04] MEDS: CLOPIDOGREL BISULFATE 75 MG TAB PO SCH (10:12)
[2022-09-04] MEDS: DOXYCYCLINE 100 MG TAB/CAP PO SCH (10:12)
[2022-09-04] MEDS: ASPirin-EC 81 mg tab PO SCH (10:12)
[2022-09-04] MEDS: MAGNESIUM OXIDE 400 MG TAB PO SCH (10:12)
[2022-09-04] MEDS: FAMOTIDINE 20 MG TAB PO SCH ×2 (10:12→22:18)
[2022-09-04] MEDS: LISINOPRIL 5 MG TAB PO SCH (10:13)
[2022-09-04] MEDS: ENOXAPARIN SOD 40 MG/0.4 ML SYRINGE SC SCH (10:13)
[2022-09-04] MEDS: ATORVASTATIN 20 MG TAB PO SCH (22:19)
[2022-09-05] VITALS (7 sets, daily range): BP systolic 108–154; BP diastolic 62–94
[2022-09-05] MEDS: ACCU-CHEK COMFORT CURVE STRIP VI SCH ×4 (05:57→22:42)
[2022-09-05] MEDS: InsuLIN REG 1unit/0.01ml Soln (100units/ml) SC SCH ×4 (05:58→22:00)
[2022-09-05 06:15] LABS: Basophils # (auto) 0 10 ^3/uL (0-0.2); Basophils % (auto) 0.7 % (0.0-2.0); Eosinophils # (auto) 0.1 10 ^3/uL (0-0.8); Eosinophils % (auto) 1.3 % (0.0-7.0); Hematocrit 44.1 % (41.0-53.0); Lymphocytes # (auto) 3.5 10 ^3/uL (0.4-5.4); Lymphocytes % (auto) 49.8 % (10.0-50.0); Mean Corpuscular Hemoglobin 32.1 pg (28.0-32.0); Mean Corpuscular Volume 94.6 fL (80.0-100.0); Monocytes # (auto) 0.4 10 ^3/uL (0-1.3); Monocytes % (auto) 5.1 % (0.0-12.0); Neutrophils % (auto) 43.1 % (37.0-80.0); Nucleated Red Blood Cells % 0.2 %; Red Blood Cells 4.66 10^6/uL (4.5-5.90); Red Cell Distribution Width 13.1 % (11.8-14.3)
[2022-09-05 06:28] LABS: Calcium 9.2 mg/dL (8.5-10.1); Potassium 4.2 mmol/L (3.5-5.1)
[2022-09-05] MEDS: MAGNESIUM OXIDE 400 MG TAB PO SCH (09:56)
[2022-09-05] MEDS: ASPirin-EC 81 mg tab PO SCH (09:56)
[2022-09-05] MEDS: AMIODARONE HCL 200 MG TAB PO SCH ×2 (09:56→22:35)
[2022-09-05] MEDS: DOXYCYCLINE 100 MG TAB/CAP PO SCH (09:57)
[2022-09-05] MEDS: FAMOTIDINE 20 MG TAB PO SCH ×2 (09:57→22:35)
[2022-09-05] MEDS: CLOPIDOGREL BISULFATE 75 MG TAB PO SCH (09:58)
[2022-09-05] MEDS: LISINOPRIL 5 MG TAB PO SCH (09:58)
[2022-09-05] MEDS: SOTALOL HCL 80 MG TAB PO SCH ×2 (09:59→22:00)
[2022-09-05] MEDS: ENOXAPARIN SOD 40 MG/0.4 ML SYRINGE SC SCH (09:59)
[2022-09-05] MEDS: ATORVASTATIN 20 MG TAB PO SCH (22:35)
[2022-09-06] VITALS (8 sets, daily range): BP systolic 123–155; BP diastolic 75–87
[2022-09-06] MEDS: ACCU-CHEK COMFORT CURVE STRIP VI SCH ×4 (06:34→21:55)
[2022-09-06] MEDS: InsuLIN REG 1unit/0.01ml Soln (100units/ml) SC SCH ×4 (06:34→21:55)
[2022-09-06] MEDS: FAMOTIDINE 20 MG TAB PO SCH ×2 (09:56→21:54)
[2022-09-06] MEDS: CLOPIDOGREL BISULFATE 75 MG TAB PO SCH (09:56)
[2022-09-06] MEDS: DOXYCYCLINE 100 MG TAB/CAP PO SCH (09:57)
[2022-09-06] MEDS: MAGNESIUM OXIDE 400 MG TAB PO SCH (09:57)
[2022-09-06] MEDS: ASPirin-EC 81 mg tab PO SCH (09:57)
[2022-09-06] MEDS: AMIODARONE HCL 200 MG TAB PO SCH (09:57)
[2022-09-06] MEDS: LISINOPRIL 5 MG TAB PO SCH (09:58)
[2022-09-06] MEDS: SOTALOL HCL 80 MG TAB PO SCH ×2 (10:00→22:00)
[2022-09-06] MEDS ORDERED: SOTA80TA20 PO (13:12)
[2022-09-06] MEDS ORDERED: MAGN241.4 PO (13:12)
[2022-09-06] MEDS: ATORVASTATIN 20 MG TAB PO SCH (21:54)
[2022-09-07 05:00] VITALS: BP 105/66
[2022-09-07] MEDS: ACCU-CHEK COMFORT CURVE STRIP VI SCH ×4 (06:14→22:08)
[2022-09-07] MEDS: InsuLIN REG 1unit/0.01ml Soln (100units/ml) SC SCH ×4 (06:14→22:00)
[2022-09-07 06:16] LABS: Basophils # (auto) 0 10 ^3/uL (0-0.2); Basophils % (auto) 0.5 % (0.0-2.0); Eosinophils # (auto) 0.1 10 ^3/uL (0-0.8); Eosinophils % (auto) 1.5 % (0.0-7.0); Hematocrit 43.2 % (41.0-53.0); Hemoglobin 14.7 g/dL (13.5-17.5); Lymphocytes # (auto) 3.4 10 ^3/uL (0.4-5.4); Lymphocytes % (auto) 47.7 % (10.0-50.0); Mean Corpuscular Hemoglobin 32.1 pg (28.0-32.0); Mean Corpuscular Hgb Conc. 34.1 g/dL (32.0-36.0); Mean Corpuscular Volume 94.2 fL (80.0-100.0); Monocytes # (auto) 0.4 10 ^3/uL (0-1.3); Monocytes % (auto) 5.1 % (0.0-12.0); Neutrophils # (auto) 3.3 10 ^3/uL (1.6-8.6); Neutrophils % (auto) 45.2 % (37.0-80.0); Nucleated Red Blood Cells % 0.1 %; Red Blood Cells 4.58 10^6/uL (4.5-5.90); Red Cell Distribution Width 12.9 % (11.8-14.3); White Blood Cell 7.2 10^3/uL (4.4-10.8)
[2022-09-07 06:30] LABS: BUN/Creatinine Ratio 14.4; Calcium 9.5 mg/dL (8.5-10.1); Potassium 3.9 mmol/L (3.5-5.1)
[2022-09-07 09:00] VITALS: BP 138/77
[2022-09-07] MEDS: ASPirin-EC 81 mg tab PO SCH (09:27)
[2022-09-07] MEDS: MAGNESIUM OXIDE 400 MG TAB PO SCH (09:27)
[2022-09-07] MEDS: CLOPIDOGREL BISULFATE 75 MG TAB PO SCH (09:27)
[2022-09-07] MEDS: FAMOTIDINE 20 MG TAB PO SCH ×2 (09:28→22:05)
[2022-09-07] MEDS: LISINOPRIL 5 MG TAB PO SCH (09:29)
[2022-09-07] MEDS: SOTALOL HCL 80 MG TAB PO SCH ×2 (09:31→22:08)
[2022-09-07 13:00] VITALS: BP 127/84
[2022-09-07 15:58] VITALS: BP 118/84
[2022-09-07 22:00] VITALS: BP 133/71
[2022-09-07] MEDS: ATORVASTATIN 20 MG TAB PO SCH (22:05)
[2022-09-08 05:06] VITALS: BP 105/61
[2022-09-08] MEDS: ACCU-CHEK COMFORT CURVE STRIP VI SCH ×2 (06:50→11:32)
[2022-09-08] MEDS: InsuLIN REG 1unit/0.01ml Soln (100units/ml) SC SCH ×2 (06:50→11:30)
[2022-09-08 09:00] VITALS: BP 122/69
[2022-09-08] MEDS: LISINOPRIL 5 MG TAB PO SCH (09:36)
[2022-09-08] MEDS: FAMOTIDINE 20 MG TAB PO SCH (09:36)
[2022-09-08] MEDS: ASPirin-EC 81 mg tab PO SCH (09:36)
[2022-09-08] MEDS: CLOPIDOGREL BISULFATE 75 MG TAB PO SCH (09:38)
[2022-09-08] MEDS: MAGNESIUM OXIDE 400 MG TAB PO SCH (09:38)
[2022-09-08 10:50] VITALS: BP 151/84
[2022-09-08 13:00] VITALS: BP 122/75
[2022-09-08] MEDS: SOTALOL HCL 80 MG TAB PO SCH (14:56)
[2022-09-08 16:00] VITALS: BP 140/76
== END 2022-09-08 16:45 | disposition home or self-care (01) | DRG 201 ==
LOC: EDBD 17:47 → ER 17:47 → TELE 19:12 → TELE-CENTR 08-28 21:16
PROVIDERS: ADMIT Nurse Practitioner Family; ATTEND Nurse Practitioner Acute Care
DX: I47.20 Ventricular tachycardia, unspecified (principal); I21.A1 Myocardial infarction type 2; I50.9 Heart failure, unspecified; I11.0 Hypertensive heart disease with heart failure; E11.9 Type 2 diabetes mellitus without complications; E78.5 Hyperlipidemia, unspecified; E66.01 Morbid (severe) obesity due to excess calories; I25.10 Atherosclerotic heart disease of native coronary artery without angina pectoris; I25.5 Ischemic cardiomyopathy; Z20.822 Contact with and (suspected) exposure to COVID-19; Z79.84 Long term (current) use of oral hypoglycemic drugs; Z68.36 Body mass index [BMI] 36.0-36.9, adult
CPT/HCPCS: 36415; 71045; 80048; 80053; 81001; 82962; 83735; 84484; 85025; 85610; 85730; 87081; 87426; 93005; 96365; 99291; C9113; G0378; J1815

== ENCOUNTER 2023-05-27 08:56 | Emergency (ER) | payer MEDICAID ==
[~2023-05-27] VITALS: Ht 170.2 cm; Wt 98.0 kg
[~2023-05-27 08:56] MED LIST changes: -AMIO200T33 PO; -DOX100T PO; +MAGN241.4 PO; -METO-6 PO; +SOTA80TA20 PO
[2023-05-27 11:31] LABS: Urine Bacteria NONE SEEN /hpf (None Seen); Urine Blood Negative /uL (Negative); Urine Clarity Clear (Clear); Urine Color Colorless (Yellow); Urine Protein, UAD Negative (Negative); Urine Specific Gravity 1.019 (1.001-1.035); Urine Urobilinogen Normal (Negative); Urine WBC <1 /hpf (0 - 3)
[2023-05-27 12:19] LABS: Basophils # (auto) 0 10 ^3/uL (0-0.2); Basophils % (auto) 0.5 % (0.0-2.0); Eosinophils # (auto) 0.1 10 ^3/uL (0-0.8); Eosinophils % (auto) 0.7 % (0.0-7.0); Hematocrit 50.5 % (41.0-53.0); Hemoglobin 17.1 g/dL (13.5-17.5); Lymphocytes # (auto) 3.4 10 ^3/uL (0.4-5.4); Lymphocytes % (auto) 46.3 % (10.0-50.0); Mean Corpuscular Hemoglobin 32.8 pg (28.0-32.0); Mean Corpuscular Hgb Conc. 33.8 g/dL (32.0-36.0); Mean Corpuscular Volume 97.1 fL (80.0-100.0); Monocytes # (auto) 0.4 10 ^3/uL (0-1.3); Monocytes % (auto) 5.4 % (0.0-12.0); Neutrophils # (auto) 3.5 10 ^3/uL (1.6-8.6); Neutrophils % (auto) 47.1 % (37.0-80.0); Nucleated Red Blood Cells % 0.3 %; Red Cell Distribution Width 13.7 % (11.8-14.3); White Blood Cell 7.4 10^3/uL (4.4-10.8)
[2023-05-27 12:33] LABS: Alanine Aminotransferase 31 U/L (7-40); Alkaline Phosphatase 58 U/L (46-116); Anion Gap 7 (5-15); BUN/Creatinine Ratio 11.9 (10.0-20.0); Blood Urea Nitrogen 10 mg/dL (9-23); Calcium 9.6 mg/dL (8.7-10.4); Carbon Dioxide 25 mmol/L (20-30); Chloride 106 mmol/L (98-107); Glucose 92 mg/dL (74-106); Magnesium 2.1 mg/dL (1.6-2.6); Potassium 3.9 mmol/L (3.5-5.1); Sodium 138 mmol/L (136-145)
[2023-05-27 12:34] LABS: Albumin 4.7 g/dL (3.2-4.8); Aspartate Aminotransferase 31 U/L (13-40); Bilirubin, Total 1.1 mg/dL (0.2-1.0); Total Protein 7.8 g/dL (5.7-8.2)
[2023-05-27] MEDS ORDERED: AML5T PO (13:08)
[2023-05-27 13:41] VITALS: BP 129/77; PULSE 54; RESP 17; TEMP 98.2; O2SAT 95
== END 2023-05-27 13:42 | disposition home or self-care (01) ==
LOC: ER 08:56
DX: I10 Essential (primary) hypertension (principal); E11.9 Type 2 diabetes mellitus without complications; Z79.899 Other long term (current) drug therapy; Z79.82 Long term (current) use of aspirin; Z86.73 Personal history of transient ischemic attack (TIA), and cerebral infarction without residual deficits; Z98.890 Other specified postprocedural states
CPT/HCPCS: 36415; 80053; 81001; 83735; 85025; 93005

== ENCOUNTER 2023-08-22 15:33 | Emergency (ER) | payer MEDICAID ==
[~2023-08-22] VITALS: Ht 175.3 cm; Wt 180.0 kg
[~2023-08-22 15:33] MED LIST changes: +AML5T PO
[2023-08-22 20:19] LABS: Basophils # (auto) 0 10 ^3/uL (0-0.2); Basophils % (auto) 0.4 % (0.0-2.0); Eosinophils # (auto) 0.1 10 ^3/uL (0-0.8); Eosinophils % (auto) 0.8 % (0.0-7.0); Hematocrit 50.7 % (41.0-53.0); Hemoglobin 16.9 g/dL (13.5-17.5); Lymphocytes # (auto) 4.1 10 ^3/uL (0.4-5.4); Lymphocytes % (auto) 47.5 % (10.0-50.0); Mean Corpuscular Hemoglobin 32.6 pg (28.0-32.0); Mean Corpuscular Hgb Conc. 33.4 g/dL (32.0-36.0); Mean Corpuscular Volume 97.6 fL (80.0-100.0); Monocytes # (auto) 0.4 10 ^3/uL (0-1.3); Monocytes % (auto) 4.4 % (0.0-12.0); Neutrophils # (auto) 4.1 10 ^3/uL (1.6-8.6); Neutrophils % (auto) 46.9 % (37.0-80.0); Nucleated Red Blood Cells % 0.2 %; Red Cell Distribution Width 14.3 % (11.8-14.3); White Blood Cell 8.7 10^3/uL (4.4-10.8)
[2023-08-22 20:39] LABS: Chloride 110 mmol/L (98-107); Sodium 140 mmol/L (136-145)
[2023-08-22 20:40] LABS: Anion Gap 8 (5-15); Carbon Dioxide 22 mmol/L (20-30)
[2023-08-22 20:41] LABS: Calcium 9.7 mg/dL (8.5-10.1)
[2023-08-22 20:46] LABS: BUN/Creatinine Ratio 11.4 (10.0-20.0); Blood Urea Nitrogen 9 mg/dL (9-23); Glucose 78 mg/dL (74-106)
[2023-08-22 21:49] VITALS: BP 127/77; PULSE 58; RESP 18; TEMP 97.8; O2SAT 95
== END 2023-08-22 21:53 | disposition home or self-care (01) ==
LOC: ER 15:33
DX: I10 Essential (primary) hypertension (principal); E11.9 Type 2 diabetes mellitus without complications; E78.5 Hyperlipidemia, unspecified; R07.89 Other chest pain; Z86.73 Personal history of transient ischemic attack (TIA), and cerebral infarction without residual deficits; Z95.0 Presence of cardiac pacemaker; Z79.82 Long term (current) use of aspirin; Z79.899 Other long term (current) drug therapy
CPT/HCPCS: 36415; 71045; 80048; 85025

== ENCOUNTER 2023-11-01 14:52 | Inpatient (IN) | payer MEDICAID ==
[~2023-11-01] VITALS: Ht 170.2 cm; Wt 92.0 kg
[~2023-11-01 14:52] MED LIST changes: +AMIO200T33 PO; -AML5T PO; +AMLO1TAB23 PO; -ASPI-325 PO; +ASPI-628 PO; -ATO40T PO; +ATOR-507 PO; +CLOP75TA28 PO; -CLOP75TA70 PO; +ERGO400T PO; -LISI-275 PO; +SACU1TAB PO
[2023-11-01 15:34] LABS: Basophils # (auto) 0 10 ^3/uL (0-0.2); Lymphocytes # (auto) 3.3 10 ^3/uL (0.4-5.4)
[2023-11-01 15:35] LABS: Basophils % (auto) 0.5 % (0.0-2.0); Eosinophils # (auto) 0.1 10 ^3/uL (0-0.8); Eosinophils % (auto) 0.5 % (0.0-7.0); Hematocrit 53.2 % (41.0-53.0); Hemoglobin 18.1 g/dL (13.5-17.5); Lymphocytes % (auto) 30.4 % (10.0-50.0); Mean Corpuscular Hemoglobin 33.1 pg (28.0-32.0); Mean Corpuscular Volume 97.5 fL (80.0-100.0); Monocytes # (auto) 0.5 10 ^3/uL (0-1.3); Monocytes % (auto) 4.5 % (0.0-12.0); Neutrophils % (auto) 64.1 % (37.0-80.0); Nucleated Red Blood Cells % 0.5 %; Red Blood Cells 5.46 10^6/uL (4.5-5.90); Red Cell Distribution Width 13.9 % (11.8-14.3)
[2023-11-01 15:48] LABS: Alanine Aminotransferase 27 U/L (7-40); Albumin 4.7 g/dL (3.2-4.8); Alkaline Phosphatase 63 U/L (46-116); Anion Gap 9 (5-15); Aspartate Aminotransferase 26 U/L (13-40); BUN/Creatinine Ratio 17.2 (10.0-20.0); Blood Urea Nitrogen 15 mg/dL (9-23); Calcium 9.9 mg/dL (8.7-10.4); Carbon Dioxide 24 mmol/L (20-30); Chloride 107 mmol/L (98-107); Glucose 96 mg/dL (74-106); Potassium 3.6 mmol/L (3.5-5.1); Sodium 140 mmol/L (136-145)
[2023-11-01] MEDS ORDERED: ACETAMINOPHEN 325 MG TAB PO PRN (18:15)
[2023-11-01] MEDS ORDERED: DOCUSATE SOD 100 MG CAP PO PRN (18:15)
[2023-11-01] MEDS ORDERED: MORPHINE SULFATE INJ 2 MG/ml SYRG IV PRN ×2 (18:15)
[2023-11-01] MEDS ORDERED: NITROGLYCERIN 0.4 MG SL TAB SL PRN (18:15)
[2023-11-01] MEDS ORDERED: ONDANSETRON HCL 4 MG/2 ML VIAL IV PRN (18:15)
[2023-11-01] MEDS ORDERED: DEXTROSE (50%) 50ML SYRG IV PRN (18:45)
[2023-11-01] MEDS: SODIUM CHLORIDE 0.9% 500 ML IV ONE (18:51)
[2023-11-01 20:26] VITALS: PULSE 82; RESP 17; O2SAT 95
[2023-11-01] MEDS: cefTRIAXone 1GM/50ML D5W 50 ML IV ONE (21:44)
[2023-11-01] MEDS: AMIODARONE HCL 200 MG TAB PO SCH (21:44)
[2023-11-01] MEDS: ATORVASTATIN 20 MG TAB PO SCH (21:44)
[2023-11-01] MEDS: SACUBITRIL-VALSARTAN 24mg/26mg TAB PO SCH (21:44)
[2023-11-01] MEDS: SOTALOL HCL 80 MG TAB PO SCH (21:45)
[2023-11-01] MEDS: ACCU-CHEK COMFORT CURVE STRIP VI SCH (21:54)
[2023-11-01] MEDS: InsuLIN REG 1unit/0.01ml Soln (100units/ml) SC SCH (21:54)
[2023-11-01] MEDS ORDERED: AMIODARONE HCL 200 MG TAB PO SCH (22:00)
[2023-11-02] VITALS (8 sets, daily range): BP systolic 110–142; BP diastolic 66–72; PULSE 47–62; RESP 16–18; TEMP 97.8–98.8; O2SAT 91–98
[2023-11-02 02:58] LABS: Urine Bacteria None Seen /hpf (None Seen)
[2023-11-02 03:38] LABS: Urine Blood Negative /uL (Negative); Urine Clarity Clear (Clear); Urine Color Yellow (Yellow); Urine Mucus FEW (None Seen); Urine Protein, UAD 1+ (Negative); Urine Specific Gravity 1.041 (1.001-1.035); Urine Urobilinogen Normal (Negative); Urine WBC 1 /hpf (0 - 3)
[2023-11-02 03:46] LABS: Amphetamine Screen, Urine Neg (NEGATIVE); Barbiturate Scree,Urine Neg (NEGATIVE); Benzodiazephine Screen, Urine Neg (NEGATIVE); Cannabinoid Screen, Urine Neg (NEGATIVE); Cocaine Screen, Urine Neg (NEGATIVE); Opiate Scree,Urine Neg (NEGATIVE); Phencyclidine Screen, Urine Neg (NEGATIVE)
[2023-11-02] MEDS: HYDROcodone-ACET 5/325MG TAB PO PRN (04:49)
[2023-11-02 04:59] LABS: Basophils # (auto) 0 10 ^3/uL (0-0.2); Basophils % (auto) 0.3 % (0.0-2.0); Eosinophils # (auto) 0 10 ^3/uL (0-0.8); Eosinophils % (auto) 0.2 % (0.0-7.0); Hematocrit 46.3 % (41.0-53.0); Hemoglobin 15.7 g/dL (13.5-17.5); Lymphocytes # (auto) 3.6 10 ^3/uL (0.4-5.4); Lymphocytes % (auto) 38.3 % (10.0-50.0); Mean Corpuscular Hemoglobin 33.2 pg (28.0-32.0); Mean Corpuscular Hgb Conc. 33.8 g/dL (32.0-36.0); Mean Corpuscular Volume 98.3 fL (80.0-100.0); Monocytes # (auto) 0.7 10 ^3/uL (0-1.3); Monocytes % (auto) 7.1 % (0.0-12.0); Neutrophils % (auto) 54.1 % (37.0-80.0); Nucleated Red Blood Cells % 0.1 %; Red Blood Cells 4.71 10^6/uL (4.5-5.90); Red Cell Distribution Width 14.1 % (11.8-14.3); White Blood Cell 9.3 10^3/uL (4.4-10.8)
[2023-11-02 05:39] LABS: Alanine Aminotransferase 21 U/L (7-40); Alkaline Phosphatase 55 U/L (46-116); Anion Gap 6 (5-15); BUN/Creatinine Ratio 13.4 (10.0-20.0); Blood Urea Nitrogen 11 mg/dL (9-23); Calcium 9.4 mg/dL (8.7-10.4); Carbon Dioxide 26 mmol/L (20-30); Chloride 109 mmol/L (98-107); Glucose 88 mg/dL (74-106); Sodium 141 mmol/L (136-145)
[2023-11-02 05:40] LABS: Aspartate Aminotransferase 23 U/L (13-40); Bilirubin, Total 1.1 mg/dL (0.2-1.0); Total Protein 6.8 g/dL (5.7-8.2)
[2023-11-02] MEDS: EMPAGLIFLOZIN 10 MG TAB PO SCH (06:17)
[2023-11-02] MEDS: cefTRIAXone 1GM/50ML D5W 50 ML IV SCH (09:04)
[2023-11-02] MEDS: CLOPIDOGREL BISULFATE 75 MG TAB PO SCH (09:10)
[2023-11-02] MEDS: ASPirin-EC 81 mg tab PO SCH (09:10)
[2023-11-02] MEDS: amLODIPine BESYLATE 5 MG TAB PO SCH (09:28)
[2023-11-03] VITALS (7 sets, daily range): BP systolic 107–124; BP diastolic 65–75; PULSE 45–57; RESP 17–20; TEMP 97.4–98.7; O2SAT 92–97
[2023-11-03 06:10] LABS: Alanine Aminotransferase 20 U/L (7-40); Alkaline Phosphatase 58 U/L (46-116); Anion Gap 5 (5-15); BUN/Creatinine Ratio 17.2 (10.0-20.0); Blood Urea Nitrogen 16 mg/dL (9-23); Calcium 9.7 mg/dL (8.7-10.4); Carbon Dioxide 28 mmol/L (20-30); Chloride 108 mmol/L (98-107); Glucose 69 mg/dL (74-106); Sodium 141 mmol/L (136-145)
[2023-11-03 06:11] LABS: Albumin 4.2 g/dL (3.2-4.8); Aspartate Aminotransferase 30 U/L (13-40); Bilirubin, Total 1.2 mg/dL (0.2-1.0)
[2023-11-03 06:15] LABS: Basophils # (auto) 0 10 ^3/uL (0-0.2); Basophils % (auto) 0.4 % (0.0-2.0); Eosinophils # (auto) 0 10 ^3/uL (0-0.8); Eosinophils % (auto) 0.5 % (0.0-7.0); Hematocrit 49.9 % (41.0-53.0); Hemoglobin 16.7 g/dL (13.5-17.5); Lymphocytes # (auto) 3.5 10 ^3/uL (0.4-5.4); Lymphocytes % (auto) 43.5 % (10.0-50.0); Mean Corpuscular Hemoglobin 32.9 pg (28.0-32.0); Mean Corpuscular Hgb Conc. 33.4 g/dL (32.0-36.0); Mean Corpuscular Volume 98.5 fL (80.0-100.0); Monocytes # (auto) 0.4 10 ^3/uL (0-1.3); Monocytes % (auto) 5.6 % (0.0-12.0); Nucleated Red Blood Cells % 0.1 %; Red Blood Cells 5.06 10^6/uL (4.5-5.90); Red Cell Distribution Width 13.7 % (11.8-14.3); White Blood Cell 8.1 10^3/uL (4.4-10.8)
[2023-11-03] MEDS ORDERED: POLYETHYLENE GLYCOL 17 GM PWDR PO PRN (19:00)
[2023-11-03] MEDS ORDERED: DOCUSATE SOD 100 MG CAP PO PRN (19:00)
[2023-11-04 01:00] VITALS: BP 117/73; PULSE 59; RESP 17; TEMP 98; O2SAT 96
== END 2023-11-04 02:35 | disposition left against medical advice (07) | DRG 190 ==
LOC: ER 14:52 → TELE 18:17 → TELE-WESTW 18:19
PROVIDERS: ADMIT Nurse Practitioner Family; ATTEND Internal Medicine
DX: I21.4 Non-ST elevation (NSTEMI) myocardial infarction (principal); I47.20 Ventricular tachycardia, unspecified; E11.9 Type 2 diabetes mellitus without complications; I50.22 Chronic systolic (congestive) heart failure; I11.0 Hypertensive heart disease with heart failure; E78.5 Hyperlipidemia, unspecified; I25.10 Atherosclerotic heart disease of native coronary artery without angina pectoris; I25.5 Ischemic cardiomyopathy; Z53.29 Procedure and treatment not carried out because of patient's decision for other reasons; Z86.73 Personal history of transient ischemic attack (TIA), and cerebral infarction without residual deficits; Z95.810 Presence of automatic (implantable) cardiac defibrillator; Z95.5 Presence of coronary angioplasty implant and graft
CPT/HCPCS: 36415; 80053; 80307; 81001; 82962; 84484; 85025; 87040; 87081; 93005; 96361; 96365; G0378